=== PATIENT | female | born 1980 | race Caucasian/White ===

== ENCOUNTER 2020-07-18 18:22 | Emergency (ER) | payer MEDICAID ==
[~2020-07-18] VITALS: Ht 172.7 cm; Wt 86.4 kg
[~2020-07-18 18:22] MED LIST: PANT-47 PO
[2020-07-18 19:47] LABS: CLARITY,URINE CLEAR (Clear); COLOR,URINE YELLOW (Yellow); GLUCOSE, URINE NEGATIVE (Neg); KETONES,URINE NEGATIVE (Neg); LEUKOCYTE ESTERASE ,URINE NEGATIVE (Neg); NITRITES, URINE NEGATIVE (Neg); OCCULT BLOOD,URINE TRACE-INTACT (Neg); PROTEIN,URINE NEGATIVE (Neg); URINE HCG NEGATIVE (NEG); UROBILINOGEN,URINE 0.2 E.U/dL (0.2-1.0)
[2020-07-18 19:48] LABS: UA COLLECTION TYPE CLN CATCH MIDSTREAM
[2020-07-18 19:56] LABS: BACTERIA,URINE NONE SEEN /HPF (Neg); MUCUS STRANDS FEW /LPF (Neg); RBC,URINE 0-2 /HPF (0-2); SQUAMOUS EPITHELIAL CELL,UR FEW /LPF (FEW); WBC,URINE NONE SEEN /HPF (0-4)
[2020-07-18 20:02] LABS: ALANINE AMINOTRANSFERASE 37 U/L (12-78); ALBUMIN 3.8 G/DL (3.4-5.0); ALBUMIN/GLOBULIN RATIO 1.1 (1.1-1.5); ALKALINE PHOSPHATASE 65 IU/L (46-116); ANION GAP 8 (8-16); ASPARTATE AMINO TRANSFERASE 43 U/L (10-37); BILIRUBIN,TOTAL 0.6 MG/DL (0.1-1.0); BLOOD UREA NITROGEN 10 MG/DL (7-18); CALCIUM 8.8 MG/DL (8.5-10.1); CHLORIDE 104 MMOL/L (99-107); CREATININE 0.83 MG/DL (0.40-0.90); GLUCOSE 105 MG/DL (70-104); SODIUM 141 MMOL/L (135-145); TOTAL CARBON DIOXIDE 28.9 MMOL/L (24-32); TOTAL PROTEIN 7.4 G/DL (6.4-8.2); eGFR 77 ML/MIN
[2020-07-18 20:03] LABS: BASOPHILS % (AUTO) 0.6 % (0-1); EOSINOPHILS # (AUTO) 0.5 X10'3 (0-0.9); EOSINOPHILS % (AUTO) 7.8 % (0-6); HEMATOCRIT 41.2 % (35.0-45.0); HEMOGLOBIN 13.9 g/dl (12.0-16.0); LYMPHOCYTES # (AUTO) 1.3 X10'3 (1.1-4.8); LYMPHOCYTES % (AUTO) 18.7 % (21-51); MEAN CORPUSCULAR HEMOGLOBIN 31.8 PG (27.0-31.0); MEAN CORPUSCULAR HGB CONC 33.8 g/dL (33.0-36.5); MEAN CORPUSCULAR VOLUME 94.3 FL (78-98); MEAN PLATELET VOLUME 9.8 FL (7.4-10.4); MONOCYTES # (AUTO) 0.4 X10'3 (0-0.9); NEUTROPHILS # (AUTO) 4.6 X10'3 (1.8-7.7); NEUTROPHILS % (AUTO) 66.9 % (42-75); PLATELET COUNT 197 X10'3 (140-440); RED BLOOD COUNT 4.37 X10'6 (4.20-5.60); RED CELL DISTRIBUTION WIDTH 13.1 % (11.5-14.5); WHITE BLOOD COUNT 6.8 X10'3 (4.5-11.0)
[2020-07-18 22:02] VITALS: BP 129/80
--- NOTE | 2020-07-18 22:12 | NUR ---
US paged again.
--- NOTE | 2020-07-18 22:35 | NUR ---
Patient unable to wait for US, states she has to go home and take care of her family. PA Good informed, discharge instructions written. Patient states she has no PMD. Patient encouraged to establish with a PMD and follow up outpatient and return to ER for worsening symptoms.
== END 2020-07-18 22:37 | disposition home or self-care (01) ==
LOC: ER 18:23
DX: R10.12 Left upper quadrant pain (principal); Z88.8 Allergy status to other drugs, medicaments and biological substances; Z79.899 Other long term (current) drug therapy; Z88.5 Allergy status to narcotic agent
CPT/HCPCS: 36415; 80053; 81001; 81025; 85025; 99284

== ENCOUNTER 2022-10-18 20:53 | Emergency (ER) | payer SELFPAY ==
[~2022-10-18] VITALS: Ht 174 cm; Wt 78.6 kg
[2022-10-18 21:05] VITALS: TEMP 98.5
[2022-10-19] MEDS ORDERED: clindamycin 150mg capsule PO ONE (00:40)
[2022-10-19] MEDS ORDERED: CLIN-214 PO (00:44)
[2022-10-19 00:56] VITALS: BP 130/77; PULSE 85; RESP 14; O2SAT 100
== END 2022-10-19 00:58 | disposition home or self-care (01) ==
LOC: ER 20:53
DX: K13.0 Diseases of lips (principal); L70.8 Other acne; Z88.5 Allergy status to narcotic agent; Z79.899 Other long term (current) drug therapy
CPT/HCPCS: 99283

== ENCOUNTER 2023-07-29 17:58 | Emergency (ER) | payer MEDICAID ==
[~2023-07-29] VITALS: Ht 172.7 cm; Wt 86.0 kg
[~2023-07-29 17:58] MED LIST changes: +CLIN-214 PO
[2023-07-29 18:09] VITALS: BP 141/72
[2023-07-29] MEDS ORDERED: SULF1TAB48 PO (20:13)
[2023-07-29] MEDS: TETanus/Pertussis (Acell)/Diphther VAC/PF (Tdap-Adult) 0.5ml syringe IMVAC ONE (20:30)
[2023-07-29] MEDS: piperacillin/tazo 3.375gm/50ml 50 ML IV STA (20:31)
[2023-07-29 22:50] VITALS: PULSE 98; RESP 16; TEMP 98.9; O2SAT 98
== END 2023-07-29 22:52 | disposition home or self-care (01) ==
LOC: ER 17:58
DX: S91.331A Puncture wound without foreign body, right foot, initial encounter (principal); Z88.5 Allergy status to narcotic agent; Z79.899 Other long term (current) drug therapy; W22.8XXA Striking against or struck by other objects, initial encounter; Y93.89 Activity, other specified; Y92.89 Other specified places as the place of occurrence of the external cause; Y99.8 Other external cause status
CPT/HCPCS: 73630; 90471; 90715; 96365; 99284; J2543

== ENCOUNTER 2024-12-03 15:54 | Emergency (ER) | payer MEDICAID ==
[~2024-12-03] VITALS: Ht 172.7 cm; Wt 81.0 kg
--- NOTE | 2024-12-03 16:07 | Physician Documentation ---
History of Present Illness Stated Complaint: BLOOD IN URINE Primary Medical Doctor: ELSIE MOSELEY [facility] Patient presents to the emergency room for evaluation of hematuria. She was seen twice here at [facility] and this past week where CT scan was performed on the which did show kidney stones but not in the ureter and repeated labs showed no anemia. She states that has bleeding has improved greatly but persists and she is concerned. No fevers. No presyncope. No weakness. Patient still menstruates Medication Reconciliation Allergies: Coded Allergies: codeine (Unverified Allergy, Unknown, 12/03/24) Scheduled Clindamycin HCl (Clindamycin HCl CAPSULE), 1 CAP PO TID Pantoprazole Sodium (PROTONIX tablet), 1 TAB PO DAILY Past Medical History Past Medical History: No Pertinent History Past Surgical History: noncontributory Alcohol Use: None Drug Use: none Lives with: Family Lives In: Home Occupation: employed Review of Systems ROS All review of systems negative except as per HPI Physical Exam Physical Exam General: Patient is awake, alert, oriented x4 in no acute distress. Anxious Head: Normocephalic and atraumatic. Eyes: Conjunctival normal. EOMI. PERRL. ENT: Mucous membranes moist. Neck: Supple, trachea is midline. Chest: Clear to auscultation bilaterally without rales, rhonchi, or wheezes. There is no accessory muscle use or retractions. Cardiac: RRR without murmurs, gallops, or rubs. Abd: Soft, nondistended, nontender, with normoactive bowel sounds. No guarding, rebound, or rigidity. Medical Decision Making Findings Patient presents to the emergency room with report of hematuria. Differentials include but are not limited to ruptured renal cysts, bladder cancer, kidney stone, menstrual cycle. Labs ordered which were reassuring especially in the light of comparing her hemoglobin to previous labs at [facility]. I do not feel she has any danger of bleeding out. Urinalysis shows minimal blood. The need to follow up with her doctor discussed that has hematuria could represent cancer and this was discussed with the patient. Departure Disposition: HOME / SELF CARE / HOMELESS Impression: Primary Impression: Hematuria Condition: Stable Discharge Instructions: Hematuria, Adult Additional Instructions: Follow up with your doctor as discussed. Referrals: NO PRIMARY CARE PROVIDER (PCP) Education Educated: Patient Educated regarding: need for follow up Signature Scribe Signature: No scribe Attestation: The note accurately reflects work and decisions made by me.Lele Boateng MD 12/03/24 21:46 PAUL OLIVEIRA Dec 03, 2024 16:07 LELE BOATENG MD Dec 03, 2024 21:46
[2024-12-03 16:23] VITALS: TEMP 98.3
[2024-12-03 18:00] LABS: MEAN PLATELET VOLUME 9.9 FL (7.4-10.4); RED CELL DISTRIBUTION WIDTH 13.0 % (11.5-14.5)
[2024-12-03 18:20] LABS: CREATININE 0.68 MG/DL (0.40-0.90); eCRCL 108 ML/MIN; eGFR > 90 ML/MIN
[2024-12-03 18:23] LABS: TOTAL CARBON DIOXIDE 28.1 MMOL/L (24-32)
[2024-12-03 18:53] LABS: URINE HCG NEGATIVE (NEG)
[2024-12-03 19:00] LABS: LEUKOCYTE ESTERASE ,URINE NEGATIVE (Neg); NITRITES, URINE NEGATIVE (Neg); OCCULT BLOOD,URINE LARGE (Neg)
[2024-12-03 19:07] LABS: UA COLLECTION TYPE CLN CATCH MIDSTREAM
[2024-12-03 19:10] LABS: SQUAMOUS EPITHELIAL CELL,UR MODERATE /LPF (FEW)
[2024-12-03 20:47] VITALS: BP 116/61; PULSE 90; RESP 16; O2SAT 100
== END 2024-12-03 21:55 | disposition home or self-care (01) ==
LOC: ER 15:55
DX: R31.9 Hematuria, unspecified (principal); Z88.5 Allergy status to narcotic agent; Z79.899 Other long term (current) drug therapy
CPT/HCPCS: 36415; 80053; 81001; 81025; 85025; 99283